=== PATIENT | female | born 2000 | race Caucasian/White ===

== ENCOUNTER 2022-05-21 02:45 | Emergency (ER) | payer SELFPAY ==
[~2022-05-21] VITALS: Ht 167.6 cm; Wt 91.0 kg
[2022-05-21 04:57] VITALS: BP 123/77
[2022-05-21] MEDS ORDERED: SODIUM CHLORIDE 0.9% 1,000 ML IV ONE (06:00)
== END 2022-05-21 06:59 | disposition home or self-care (01) ==
LOC: ER 03:10
DX: R55 Syncope and collapse (principal); G40.909 Epilepsy, unspecified, not intractable, without status epilepticus; Z86.73 Personal history of transient ischemic attack (TIA), and cerebral infarction without residual deficits
CPT/HCPCS: 93005; 99283; J7030